=== PATIENT | female | born 1935 | race Caucasian/White ===

== ENCOUNTER 2018-07-17 13:01 | Emergency (ER) | payer MEDICARE | END 2018-07-17 14:40 | disposition home or self-care (01) | LOC: ERS 13:01 | DX: G40.89 Other seizures (principal); G43.909 Migraine, unspecified, not intractable, without status migrainosus; I25.10 Atherosclerotic heart disease of native coronary artery without angina pectoris | CPT/HCPCS: 93005 ==

== ENCOUNTER 2018-09-25 14:07 | Emergency (ER) | payer MEDICARE ==
--- NOTE | 2018-09-25 15:02 | RAD ---
Right hip 2 views HISTORY: Right hip pain. Fall. 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 No perihardware lucency. No acute fracture or dislocation . IMPRESSION: Right hip prosthesis in good position. No acute osseous abnormalities are demonstrated.
== END 2018-09-25 15:44 | disposition home or self-care (01) ==
LOC: ERS 14:07
DX: M25.551 Pain in right hip (principal); G43.909 Migraine, unspecified, not intractable, without status migrainosus; I25.10 Atherosclerotic heart disease of native coronary artery without angina pectoris; W19.XXXA Unspecified fall, initial encounter

== ENCOUNTER 2018-11-24 13:16 | Emergency (ER) | payer MEDICARE ==
[2018-11-24 14:07] LABS: #Eosinphils 0.1 thou/uL (0.0-0.7); #Lymphocytes 1.2 thou/uL (1.20-3.40); #Monocytes 0.4 thou/uL (0.11-0.59); %Basophils 0.3 % (0.0-1.0); %Lymphocytes 17.6 % (21.0-51.0); %Monocytes 6.2 % (0.0-10.0); %Neutrophils 73.9 % (42.0-75.0); Hemoglobin 13.6 g/dL (12.0-16.0); Mean Corpuscular Hemoglobin 32.7 pg (27.0-31.0); Mean Corpuscular Volume 99.1 fL (78.0-98.0); Mean Platelet Volume 6.9 fL (7.4-10.4); Platelet Count 217 thou/uL (130-400); RBC Distribution Width 12.2 % (11.5-14.5); Red Blood Cell (RBC) Count 4.17 mill/uL (4.20-5.40); White Blood Cell (WBC) Count 6.7 thou/uL (4.8-10.8)
--- NOTE | 2018-11-24 14:37 | RAD ---
RADIOGRAPH CHEST 1 VIEW: DATE: 11/24/2018 HISTORY: 83-year-old female with chest pain FINDINGS: The thoracic aorta is tortuous and ectatic. There is no evidence of airspace density, pulmonary edema , or pneumothorax. The lateral costophrenic angles are not effaced. IMPRESSION: 1) No acute pulmonary findings. 2) ectasia of thoracic aorta.
[2018-11-24 14:40] LABS: ALT (SGPT) 11 U/L (8-55); AST (SGOT) 17 U/L (5-34); Albumin 3.9 g/dL (3.4-4.8); Alkaline Phosphatase 55 U/L (40-150); Anion Gap 12 mmol/L (10-20); BUN (Urea Nitrogen) 23 mg/dL (9.8-20.1); Bilirubin, Total 0.5 mg/dL (0.2-1.2); Calc. Creatinine Clearance 0 mL/min (70-130); Calcium 10.2 mg/dL (7.8-10.44); Carbon Dioxide 28 mmol/L (23-31); Chloride 106 mmol/L (98-107); Estimated GFR-MDRD 42; Globulin 2.5 g/dL (2.4-3.5); Glucose 123 mg/dL (83-110); Potassium 3.9 mmol/L (3.5-5.1); Protein, Total 6.4 g/dL (6.0-8.3); Sodium 142 mmol/L (136-145)
[2018-11-24 15:56] LABS: Bacteria/HPF 2+ HPF (None Seen); Bilirubin Negative (Negative); Blood, Urine Negative (Negative); Clarity Turbid (Clear); Glucose, Urine (Dipstick) Normal (Negative); Leukocyte 250 Leu/uL (Negative); Nitrite Negative (Negative); Protein, Urine (Dipstick) Negative (Neg-Trace); Urobilinogen Normal mg/dL (Less than 2); WBC/HPF 21-50 HPF (0-3)
== END 2018-11-24 16:24 | disposition home or self-care (01) ==
LOC: ERS 13:16
DX: R55 Syncope and collapse (principal); I25.10 Atherosclerotic heart disease of native coronary artery without angina pectoris; M19.90 Unspecified osteoarthritis, unspecified site; Z79.82 Long term (current) use of aspirin; Z79.899 Other long term (current) drug therapy
CPT/HCPCS: 71045; 80053; 81003; 81015; 84484; 85025; 87077; 87086; 87186; 93005; 94760; 96360

== ENCOUNTER 2020-11-12 09:59 | Emergency (ER) | payer MEDICARE ==
[2020-11-12 10:47] LABS: #Eosinphils 0.2 thou/uL (0.0-0.7); #Lymphocytes 1.4 thou/uL (1.20-3.40); #Monocytes 0.8 thou/uL (0.11-0.59); %Basophils 0.6 % (0.0-1.0); %Eosinophils 2.6 % (0.0-10.0); %Lymphocytes 22.2 % (21.0-51.0); %Monocytes 12.3 % (0.0-10.0); %Neutrophils 62.4 % (42.0-75.0); Hemoglobin 15.2 g/dL (12.0-16.0); Mean Corpuscular HGB CONC 32.9 g/dL (32.0-36.0); Mean Corpuscular Hemoglobin 31.8 pg (27.0-31.0); Mean Corpuscular Volume 96.7 fL (78.0-98.0); Mean Platelet Volume 7.4 fL (7.4-10.4); Platelet Count 220 thou/uL (130-400); RBC Distribution Width 12.3 % (11.5-14.5); Red Blood Cell (RBC) Count 4.76 mill/uL (4.20-5.40); White Blood Cell (WBC) Count 6.4 thou/uL (4.8-10.8)
[2020-11-12 11:09] LABS: ALT (SGPT) 14 U/L (8-55); AST (SGOT) 21 U/L (5-34); Albumin 4.1 g/dL (3.4-4.8); Alkaline Phosphatase 61 U/L (40-110); Anion Gap 12 mmol/L (10-20); BUN (Urea Nitrogen) 21 mg/dL (9.8-20.1); Bilirubin, Total 0.6 mg/dL (0.2-1.2); CK (CPK) 67 U/L (29-168); Calc. Creatinine Clearance 0 mL/min (70-130); Calcium 10.6 mg/dL (7.8-10.44); Carbon Dioxide 26 mmol/L (23-31); Chloride 104 mmol/L (98-107); Glucose 114 mg/dL (83-110); Protein, Total 7.1 g/dL (5.8-8.1); Sodium 138 mmol/L (136-145)
[2020-11-12 11:21] LABS: Bilirubin Negative (Negative); Blood, Urine Trace (Negative); Clarity Clear (Clear); Glucose, Urine (Dipstick) Normal (Negative); Ketone, Urine Negative (Negative); Leukocyte 250 Leu/uL (Negative); Nitrite Negative (Negative); Protein, Urine (Dipstick) Negative (Neg-Trace); Squamous Epithelial 0-3 HPF (0-3); Urobilinogen Normal mg/dL (Less than 2); WBC/HPF 21-50 HPF (0-3)
[2020-11-12 11:22] LABS: Bacteria/HPF Rare-Few HPF (None Seen)
== END 2020-11-12 12:30 | disposition home or self-care (01) ==
LOC: ERS 09:59
DX: R56.9 Unspecified convulsions (principal); N39.0 Urinary tract infection, site not specified; G43.909 Migraine, unspecified, not intractable, without status migrainosus
CPT/HCPCS: 80053; 81003; 81015; 82550; 83735; 84146; 84443; 84484; 85025; 93005

== ENCOUNTER 2021-05-29 13:02 | Inpatient (IN) | payer MEDICARE ==
[2021-05-29 15:02] LABS: Hemoglobin 13.5 g/dL (12.0-16.0); Mean Corpuscular HGB CONC 29.3 g/dL (32.0-36.0); Mean Corpuscular Hemoglobin 28.6 pg (27.0-31.0); Mean Corpuscular Volume 97.7 fL (78.0-98.0); Mean Platelet Volume 7.9 fL (7.4-10.4); Platelet Count 178 thou/uL (130-400); RBC Distribution Width 13.1 % (11.5-14.5); Red Blood Cell (RBC) Count 4.73 mill/uL (4.20-5.40); White Blood Cell (WBC) Count 9.9 thou/uL (4.8-10.8)
[2021-05-29 15:20] LABS: Bilirubin Negative (Negative); Blood, Urine 3+ (Negative); Clarity Extra Turbid (Clear); Glucose, Urine (Dipstick) Normal (Negative); Ketone, Urine Negative (Negative); Leukocyte 75 Leu/uL (Negative); Nitrite Negative (Negative); Protein, Urine (Dipstick) 300 mg/dL (Neg-Trace); RBC/HPF Greater than 50 HPF (0-3); Specific Gravity, Urine 1.022 (1.002-1.036); Urobilinogen Normal mg/dL (Less than 2); pH, Urine 7.5 (5.0-9.0)
[2021-05-29 15:24] LABS: Band 28 % (5-11); Eosinophils 3 % (0-10); Lymphocytes 2 % (21-51); MDiff Complete? YES; Metamyelocyte 1 % (0-0); Monocytes 1 % (0-10); Neutrophil 65 % (42-75); Platelet Morphology Comment Appears Adequate; RBC Morphology Normal; Toxic Granulation SLIGHT; Vacuoles SLIGHT
[2021-05-29 15:30] LABS: Bacteria/HPF 3+ HPF (None Seen)
[2021-05-29 16:01] LABS: ALT (SGPT) 229 U/L (8-55); AST (SGOT) 542 U/L (5-34); Albumin 3.2 g/dL (3.4-4.8); Alkaline Phosphatase 302 U/L (40-110); Anion Gap 25 mmol/L (10-20); BUN (Urea Nitrogen) 100 mg/dL (9.8-20.1); Bilirubin, Total 0.8 mg/dL (0.2-1.2); Calc. Creatinine Clearance 0 mL/min (70-130); Calcium 10.9 mg/dL (7.8-10.44); Carbon Dioxide 21 mmol/L (23-31); Chloride 89 mmol/L (98-107); Globulin 4.2 g/dL (2.4-3.5); Potassium 4.8 mmol/L (3.5-5.1); Protein, Total 7.4 g/dL (5.8-8.1); Sodium 130 mmol/L (136-145)
[2021-05-29] MEDS ORDERED: cefTRIAXone\\ROCEPHIN 1 GM VIAL ONE (16:02)
[2021-05-29 16:09] LABS: CKMB 7.7 ng/mL (0-6.6); Glucose 53 mg/dL (83-110)
[2021-05-29 16:11] LABS: SARS-CoV-2 NAA Rapid Test Not Detected (NotDetected)
[2021-05-29] MEDS ORDERED: Dextrose 50% Abboject 50 ML SYRINGE ONE (16:16)
[2021-05-29] MEDS ORDERED: Vancomycin 1 GM/200 ML BAG ONE (16:48)
[2021-05-29] MEDS ORDERED: Heparin 25,000 units/D5W 500 ML ONE (17:34)
[2021-05-29] MEDS ORDERED: Heparin 10,000 UNITS/ 10 ML VIAL ONE (17:34)
[2021-05-29 18:47] LABS: INR-International Normal Ratio 1.8; Prothrombin Time 21.4 sec (12.0-14.7)
[2021-05-29 18:49] LABS: PTT 111.5 sec (22.9-36.1)
[2021-05-29] MEDS ORDERED: Nitroglycerin 0.4 MG TAB (25 Tab Bottle) SL PRN (19:08)
[2021-05-29] MEDS ORDERED: Ondansetron PF 4 MG/2 ML Vial IVP PRN (19:08)
[2021-05-29] MEDS ORDERED: Acetaminophen 325 MG TAB PO PRN (19:08)
[2021-05-29] MEDS ORDERED: Heparin 25,000 units/D5W 500 ML IVPB SCH (19:15)
[2021-05-29] MEDS ORDERED: Heparin 10,000 UNITS/ 10 ML VIAL SLOW IVP SCH (19:15)
[2021-05-29] MEDS ORDERED: Aspirin 325 mg Enteric Coated Tablet PO SCH (19:30)
[2021-05-29] MEDS ORDERED: Sodium Chloride 0.9% 1,000 ML IV SCH (19:30)
[2021-05-29 19:36] LABS: Platelet Count 164 thou/uL (130-400)
[2021-05-29 19:38] LABS: CKMB 14.4 ng/mL (0-6.6)
[2021-05-29] MEDS ORDERED: Aspirin 325 MG TAB ONE (19:55)
[2021-05-29] MEDS ORDERED: Furosemide 100 MG/10 ML VIAL SLOW IVP SCH (20:30)
[2021-05-29] MEDS ORDERED: Atorvastatin Calcium 40 MG TAB PO SCH (21:00)
[2021-05-29] MEDS ORDERED: Metoprolol Tartrate 25 MG TAB PO SCH (21:00)
[2021-05-29] MEDS ORDERED: Cefepime 2 GM in Sodium Chloride 0.9% 100 ML IVPB SCH (21:00)
[2021-05-29] MEDS ORDERED: Cefepime 1 GM in Sodium Chloride 0.9% 100 ML IVPB SCH (22:00)
[2021-05-29 22:26] VITALS: BMI 25.0
[2021-05-29] MEDS ORDERED: hydrALAZINE 20 MG/ML VIAL SLOW IVP PRN (22:27)
[2021-05-29] MEDS ORDERED: Melatonin 3 MG TAB PO PRN (23:31)
[2021-05-29] MEDS ORDERED: hydrOXYzine 10 MG TAB PO PRN (23:31)
[2021-05-30] MEDS: DULoxetine 30 MG CAP PO SCH ×2 (00:22→18:28)
[2021-05-30] MEDS ORDERED: Pantoprazole 40 MG VIAL IVP SCH ×2 (02:15→09:00)
[2021-05-30 03:00] LABS: Band 9 % (5-11); Hemoglobin 12.5 g/dL (12.0-16.0); Lymphocytes 2 % (21-51); MDiff Complete? YES; Mean Corpuscular HGB CONC 34.4 g/dL (32.0-36.0); Mean Corpuscular Hemoglobin 33.6 pg (27.0-31.0); Mean Corpuscular Volume 97.7 fL (78.0-98.0); Mean Platelet Volume 7.6 fL (7.4-10.4); Monocytes 17 % (0-10); Neutrophil 72 % (42-75); Platelet Count 177 thou/uL (130-400); Platelet Morphology Comment Appears Adequate; RBC Distribution Width 13.1 % (11.5-14.5); RBC Morphology Normal; Red Blood Cell (RBC) Count 3.71 mill/uL (4.20-5.40); White Blood Cell (WBC) Count 13.6 thou/uL (4.8-10.8)
[2021-05-30 03:10] LABS: ALT (SGPT) 265 U/L (8-55); AST (SGOT) 690 U/L (5-34); Alkaline Phosphatase 413 U/L (40-110); Bilirubin, Direct 0.5 mg/dL (0.1-0.3); Bilirubin, Total 0.6 mg/dL (0.2-1.2); Protein, Total 6.7 g/dL (5.8-8.1)
[2021-05-30 03:22] LABS: Anion Gap 22 mmol/L (10-20); BUN (Urea Nitrogen) 103 mg/dL (9.8-20.1); Calc. Creatinine Clearance 8 mL/min (70-130); Calcium 10.5 mg/dL (7.8-10.44); Carbon Dioxide 20 mmol/L (23-31); Cardiac Risk 8.4 (Less than 4.5); Chloride 90 mmol/L (98-107); Cholesterol 66 mg/dl (< 200 Desired); Glucose 66 mg/dL (83-110); HDL Cholesterol Less than 8 mg/dL (>60 Neg Risk); Potassium 4.7 mmol/L (3.5-5.1); Sodium 127 mmol/L (136-145); Triglycerides 128 mg/dL (Less than 150)
[2021-05-30 06:36] LABS: Protein, Urine Random Quant Greater than 2000 mg/dL (1-14)
[2021-05-30 07:00] LABS: Troponin I 0.773 ng/mL (< 0.028)
[2021-05-30] MEDS ORDERED: Aspirin 325 mg Enteric Coated Tablet PO SCH (09:00)
[2021-05-30] MEDS ORDERED: Sodium Chloride 0.9% 1,000 ML IV SCH (14:00)
[2021-05-30 14:03] LABS: Anion Gap 27 mmol/L (10-20); BUN (Urea Nitrogen) 108 mg/dL (9.8-20.1); Calc. Creatinine Clearance 7 mL/min (70-130); Calcium 10.5 mg/dL (7.8-10.44); Carbon Dioxide 16 mmol/L (23-31); Chloride 91 mmol/L (98-107); Potassium 5.5 mmol/L (3.5-5.1); Sodium 128 mmol/L (136-145)
[2021-05-30 14:23] LABS: Glucose 38 mg/dL (83-110)
[2021-05-30] MEDS ORDERED: Nitroglycerin 2% Ointment 1 INCH/1 GM Packet TOP SCH ×2 (15:00→15:30)
[2021-05-30] MEDS ORDERED: Dextrose 50% Abboject 50 ML SYRINGE ONE (15:16)
[2021-05-30] MEDS ORDERED: Dextrose 50% Abboject 50 ML SYRINGE SLOW IVP SCH (15:30)
[2021-05-30] MEDS ORDERED: Dextrose 5 % And 0.9 % NaCl 1,000 ML IV SCH ×2 (15:30→19:30)
[2021-05-30] MEDS: Morphine 4 MG/ML VIAL SLOW IVP PRN ×2 (16:29→22:42)
[2021-05-30] MEDS ORDERED: Lidocaine 5% Patch TD SCH (17:00)
[2021-05-30] MEDS ORDERED: Vancomycin 1 GM in Premix Bag 1 BAG IVPB SCH (17:00)
[2021-05-30 17:42] LABS: Vancomycin, Random 11.3 ug/mL (See Comment)
[2021-05-30] MEDS ORDERED: Sodium Bicarb 50 MEQ/50 ML Abboject 8.4% SYRINGE IVP SCH (19:45)
[2021-05-30] MEDS ORDERED: Vancomycin HCl 750 MG in Sodium Chloride 0.9% 250 ML 250 ML IVPB SCH (20:00)
[2021-05-30 21:02] VITALS: BP 117/67; TEMP 96.5
[2021-05-31] MEDS ORDERED: Transdermal Patch Removal TOP SCH (05:00)
[2021-05-31] MEDS ORDERED: Aspirin 81 mg Enteric Coated Tablet PO SCH (09:00)
[2021-05-31 14:39] LABS: Kappa Lambda Light Chain Ratio 1.03 (0.26-1.65); Kappa Light Chains 154.7 mg/L (3.3-19.4); Lambda Light Chain 149.9 mg/L (5.7-26.3)
[2021-06-01 13:06] LABS: ANA Symphony (Qualitative) Negative (Negative); ANA Symphony (Quantitative) 0.3 Ratio (< 0.7 Negative); dsDNA IgG Antibody 1.7 IU/mL (<10 Negative)
[2021-06-02 12:30] LABS: Glomerular Basmt Membrane ABS 3 units (0-20)
[2021-06-02 15:14] LABS: Cytoplasmic (C-ANCA) <1:20 titer (Neg:<1:20); Myeloperoxidase AutoAbs <9.0 U/mL (0.0-9.0); Perinuclear (P-ANCA) <1:20 titer (Neg:<1:20); Proteinase-3 AutoAbs Less than 3.5 U/mL (0.0-3.5)
== END 2021-05-30 22:48 | disposition expired | DRG 871 ==
LOC: ERS 13:02 → ERHOLD 17:13 → NEURO 22:28
PROVIDERS: ADMIT Internal Medicine; ATTEND Internal Medicine
DX: A41.51 Sepsis due to Escherichia coli [E. coli] (principal); G93.41 Metabolic encephalopathy; K72.00 Acute and subacute hepatic failure without coma; I21.A1 Myocardial infarction type 2; N39.0 Urinary tract infection, site not specified; N17.9 Acute kidney failure, unspecified; E87.1 Hypo-osmolality and hyponatremia; K92.1 Melena; E87.2 Acidosis; Z66 Do not resuscitate; Z20.822 Contact with and (suspected) exposure to COVID-19; R65.20 Severe sepsis without septic shock; R79.89 Other specified abnormal findings of blood chemistry; E87.5 Hyperkalemia; E88.09 Other disorders of plasma-protein metabolism, not elsewhere classified; I25.10 Atherosclerotic heart disease of native coronary artery without angina pectoris; G43.909 Migraine, unspecified, not intractable, without status migrainosus; G47.00 Insomnia, unspecified; N18.30 Chronic kidney disease, stage 3 unspecified; I50.9 Heart failure, unspecified; M19.90 Unspecified osteoarthritis, unspecified site; K76.1 Chronic passive congestion of liver; R29.6 Repeated falls; I25.2 Old myocardial infarction; Z88.8 Allergy status to other drugs, medicaments and biological substances; Z85.038 Personal history of other malignant neoplasm of large intestine; Z98.890 Other specified postprocedural states; Z98.42 Cataract extraction status, left eye; Z98.41 Cataract extraction status, right eye; Z90.89 Acquired absence of other organs; Z95.5 Presence of coronary angioplasty implant and graft
CPT/HCPCS: 36415; 36416; 70450; 71045; 76705; 76770; 80048; 80053; 80061; 80076; 80202; 81003; 81015; 82550; 82553; 82570; 83516; 83520; 83605; 83880; 83883; 84156; 84484; 85025; 85610; 85730; 86038; 86225; 86256; 86850; 86900; 86901; 87040; 87077; 87086; 87186; 93005; 93010; C9113; J0692; J0696; J1644; J1940; J2270; J3370; J3490; J7042; J7050; U0002